=== PATIENT | female | born 1950 | race African-American/Black ===

== ENCOUNTER 2018-02-15 15:53 | Inpatient (IN) ==
[2018-02-15] MEDS ORDERED: INSULIN REGULAR 100 UNIT/ML IV STA ×2 (16:19→18:17)
[2018-02-15] MEDS ORDERED: HYDROmorphone 2 MG/1 ML VIAL IV STA (16:19)
[2018-02-15] MEDS ORDERED: SODIUM CHLORIDE 0.9% 2,000 ML IV STA (16:19)
[2018-02-15] MEDS ORDERED: INSULIN REGULAR 100 UNIT/ML SUBCUT STA (16:19)
[2018-02-15] MEDS ORDERED: ONDANSETRON 4 MG/2 ML VIAL IV STA (16:19)
[2018-02-15 16:43] LABS: ABG Base Excess -3.8 MMOL/L (-2.5-2.5); ABG HCO3 21.2 MMOL/L (20-26); ABG Oxygen Saturation 95.9 % (95-100); ABG PCO2 32.9 MM HG (35-48); ABG PH 7.393 (7.35-7.45); ABG TCO2 16.6 MMOL/L (23-27)
[2018-02-15 17:11] LABS: Basophils % 0.9 % (0.0-0.8); Hematocrit 50.3 VOL% (35.7-47.0); Hemoglobin 16.6 GM/DL (12.0-16.0); Immature Granulocytes % 0.2 %; Immature Granulocytes Absolute 0.01 #; Lymphocytes # 0.9 10*3/uL (1.4-4.0); Lymphocytes % 19.1 % (21.3-54.2); Mean Corpuscular Hemoglobin 28 PG (27-34); Mean Corpuscular Volume 85.5 FL (87-102); Mean Platelet Volume 12.6 FL (9.6-12.0); Monocytes # 0.4 10*3/uL (0.11-0.8); Monocytes % 7.7 % (1.7-12.7); Neutrophils # 3.4 10*3/uL (1.4-7.4); Neutrophils % 72.1 % (38.7-73.9); Platelet Count 214 T/CUMM (130-400); Red Blood Count 5.88 MC/CUMM (3.8-5.5); Red Cell Distribution Width 11.9 % (9.3-17.3); White Blood Count 4.7 T/CUMM (4-12)
[2018-02-15 17:19] LABS: Apearance,Urine Slightly Hazy (Clear); Bacteria,Urine Occasional /HPF (Few); Bilirubin,Urine Negative (Negative); Blood, Urine Small mg/dL (Negative); Glucose,Urine (UA) >=500 mg/dL (Negative); Hyaline Casts,Urine 16 /LPF (0-3); Ketones,Urine 20 mg/dL (Negative); Mucus,Urine Occasional /LPF (Occasional); Nitrite,Urine Negative (Negative); Protein,Urine 100 MG/DL; Squamous Epithelial Cell,Urine Occasional /HPF (0-10); Urine Color Yellow (Yellow); Urine Specific Gravity 1.023 (1.001-1.035); Urine Urobilinogen < 2.0 EU/DL (0.2-1.0); WBC,Urine 5 /HPF (0-6)
[2018-02-15 17:46] LABS: Alanine Aminotransferase 16 U/L (13-56); Alkaline Phosphatase 80 U/L (45-117); Aspartate Amino Transferase 15 U/L (0-37); Blood Urea Nitrogen 38 MG/DL (7-18); Calcium 9.6 MG/DL (8.5-10.1); Osmolality,Calculated 306.4 MOS/KG (273-304); Potassium 3.9 MMOL/L (3.5-5.1); Sodium 133 MMOL/L (136-145); Total Protein 6.9 G/DL (6.4-8.3); Troponin I 0.032 NG/ML (0.00-0.045)
[2018-02-15 17:47] LABS: Glucose 678 MG/DL (74-106)
[2018-02-15 17:53] LABS: Lactic Acid 4.8 MMOL/L (0.4-2.0)
[2018-02-15] MEDS ORDERED: ALBUTEROL 2.5 MG/3 ML NEB RESP TX PRN (18:13)
[2018-02-15] MEDS ORDERED: HYDROmorphone 2 MG/1 ML VIAL IV PRN (18:18)
[2018-02-15] MEDS ORDERED: SODIUM CHLORIDE 0.9% 1,000 ML IV SCH (18:30)
[2018-02-15] MEDS ORDERED: INSULIN REGULAR DRIP 100 ML IV PRN (18:31)
[2018-02-15] MEDS ORDERED: LACTATED RINGERS 1,000 ML IV ONE ×2 (20:12→22:29)
[2018-02-15] MEDS: PIPERACILLIN/TAZOBACTAM 3,375 MG in SODIUM CHLORIDE 0.9% 100 ML IV SCH (20:20)
[2018-02-15] MEDS ORDERED: INFLUENZA VIRUS VACCINE 0.5 ML SYRINGE IM ONE (20:25)
[2018-02-15 20:27] LABS: Calcium 9.5 MG/DL (8.5-10.1); Osmolality,Calculated 303.7 MOS/KG (273-304); Potassium 3.5 MMOL/L (3.5-5.1)
[2018-02-15] MEDS ORDERED: PANTOPRAZOLE 40 MG VIAL IV SCH (21:00)
[2018-02-15] MEDS ORDERED: SUGAMMADEX 200 MG/2 ML VIAL IV ONE (21:26)
[2018-02-15] MEDS ORDERED: PROMETHAZINE INJ 25 MG in SODIUM CHLORIDE 0.9% 50 ML IV PRN (21:32)
[2018-02-15] MEDS ORDERED: MORPHINE 4 MG/1 ML VIAL IV PRN (21:32)
[2018-02-15] MEDS ORDERED: MEPERIDINE 25 MG/1 ML VIAL IV PRN (21:32)
[2018-02-15] MEDS ORDERED: ONDANSETRON 4 MG/2 ML VIAL IV PRN (21:32)
[2018-02-15] MEDS ORDERED: diphenhydrAMINE 50 MG/1 ML VIAL IV PRN (21:32)
[2018-02-15] MEDS: LACTATED RINGERS 1,000 ML IV SCH (22:15)
[2018-02-15] MEDS ORDERED: SEVOFLURANE 1 UNIT/15 MINUTE INH ONE (22:27)
[2018-02-15] MEDS ORDERED: fentaNYL 100 MCG/2 ML VIAL ONE (22:28)
[2018-02-15] MEDS ORDERED: PHENYLEPHRINE 1 MG/10 ML SYRINGE IV ONE (22:28)
[2018-02-15] MEDS ORDERED: ONDANSETRON 4 MG/2 ML VIAL ONE (22:28)
[2018-02-15] MEDS ORDERED: ETOMIDATE 40 MG/20 ML VIAL IV ONE (22:28)
[2018-02-15] MEDS ORDERED: DEXAMETHASONE 10 MG/1 ML VIAL ONE (22:28)
[2018-02-15] MEDS ORDERED: MIDAZOLAM 2 MG/2 ML VIAL ONE (22:28)
[2018-02-15] MEDS ORDERED: ROCURONIUM 100 MG/10 ML VIAL IV ONE (22:29)
[2018-02-15] MEDS ORDERED: SUCCINYLCHOLINE 200 MG/10 ML VIAL ONE (22:29)
[2018-02-15] MEDS ORDERED: PHENYLEPHRINE 0.5% NASAL SPRAY 15 ML BOTTLE BOTH NARES ONE (22:30)
[2018-02-15] MEDS ORDERED: LIDOCAINE 2% TOP JELLY 5 ML TUBE TOP ONE (22:30)
[2018-02-15] MEDS ORDERED: INSULIN REGULAR 100 UNIT/ML IV ONE ×2 (22:35→23:27)
[2018-02-15] MEDS ORDERED: MORPHINE 4 MG/1 ML VIAL IM PRN (23:27)
[2018-02-16 01:03] LABS: Hematocrit 45.7 VOL% (35.7-47.0); Hemoglobin 14.8 GM/DL (12.0-16.0)
[2018-02-16 01:26] LABS: Osmolality,Calculated 299.3 MOS/KG (273-304); Potassium 3.2 MMOL/L (3.5-5.1)
[2018-02-16 01:28] LABS: Lactic Acid 2.9 MMOL/L (0.4-2.0)
[2018-02-16 01:36] LABS: Albumin 2.3 G/DL (3.4-5.0); Bilirubin,Total 1.1 MG/DL (0.2-1.0); Calcium 8.9 MG/DL (8.5-10.1); Osmolality,Calculated 298.3 MOS/KG (273-304); Potassium 3.1 MMOL/L (3.5-5.1); Thyroid Stimulating Hormone 4.21 uIU/ml (0.358-3.74); Total Protein 5.7 G/DL (6.4-8.3)
[2018-02-16] MEDS: LACTATED RINGERS 1,000 ML IV SCH ×4 (03:42→22:30)
[2018-02-16] MEDS ORDERED: DEXTROSE 50% 25 GM/50 ML VIAL IV ONE (04:35)
[2018-02-16] MEDS: DEXTROSE 50% 25 GM/50 ML VIAL IV PRN ×2 (04:45→08:15)
[2018-02-16 05:35] LABS: Basophils % 0.1 % (0.0-0.8); Hematocrit 46.1 VOL% (35.7-47.0); Hemoglobin 14.9 GM/DL (12.0-16.0); Immature Granulocytes % 0.3 %; Immature Granulocytes Absolute 0.02 #; Lymphocytes # 0.9 10*3/uL (1.4-4.0); Lymphocytes % 13.5 % (21.3-54.2); Mean Corpuscular HGB Conc 32.3 GM/DL (32-36); Mean Corpuscular Hemoglobin 28 PG (27-34); Mean Corpuscular Volume 85.5 FL (87-102); Mean Platelet Volume 12.6 FL (9.6-12.0); Monocytes # 0.6 10*3/uL (0.11-0.8); Monocytes % 7.9 % (1.7-12.7); Neutrophils # 5.4 10*3/uL (1.4-7.4); Neutrophils % 78.2 % (38.7-73.9); Platelet Count 175 T/CUMM (130-400); Red Blood Count 5.39 MC/CUMM (3.8-5.5)
[2018-02-16 05:56] LABS: Microcytosis 1+
[2018-02-16 05:57] LABS: Hypochromasia 1+
[2018-02-16 05:58] LABS: Platelet Estimate Adequate
[2018-02-16] MEDS: PANTOPRAZOLE 40 MG VIAL IV SCH ×2 (08:16→20:37)
[2018-02-16] MEDS: PIPERACILLIN/TAZOBACTAM 3,375 MG in SODIUM CHLORIDE 0.9% 100 ML IV SCH ×2 (08:16→20:36)
[2018-02-16] MEDS ORDERED: PANTOPRAZOLE 40 MG TABLET PO SCH (09:00)
[2018-02-16] MEDS: MORPHINE 4 MG/1 ML VIAL IV PRN ×2 (11:30→16:33)
[2018-02-16] MEDS ORDERED: SODIUM CHLORIDE 0.9% 1,000 ML IV ONE (12:45)
[2018-02-16] MEDS ORDERED: POTASSIUM CHLORIDE RIDER 20 MEQ in PREMIX 1 EACH IV SCH (13:30)
[2018-02-16] MEDS ORDERED: FAT EMULSION 20% 250 ML IV SCH (14:00)
[2018-02-16] MEDS: POTASSIUM CHLORIDE RIDER 10 MEQ in PREMIX 1 EACH IV SCH ×4 (14:18→17:25)
[2018-02-16] MEDS ORDERED: GLUCAGON 1 MG VIAL IM PRN ×2 (14:25→15:20)
[2018-02-16] MEDS ORDERED: DEXTROSE 50% 25 GM/50 ML VIAL IV PRN (15:20)
[2018-02-16] MEDS ORDERED: METOPROLOL TARTRATE 5 MG/5 ML VIAL IV ONE (16:30)
[2018-02-16] MEDS: ONDANSETRON 4 MG/2 ML VIAL IV PRN (16:30)
[2018-02-16] MEDS ORDERED: LACTATED RINGERS 1,000 ML IV ONE ×2 (16:31→20:53)
[2018-02-16] MEDS ORDERED: TRACE ELEMENTS (5) 1 ML, MULTIVITAMIN INJ 10 ML in AMINO ACIDS/DEXT/LYTES 5-15% 2,000 ML IV SCH (17:00)
[2018-02-16] MEDS ORDERED: DEXTROSE 10% 1,000 ML IV PRN (17:00)
[2018-02-16] MEDS: INSULIN REGULAR 100 UNIT/ML SUBCUT SCH (17:05)
[2018-02-17] MEDS: INSULIN REGULAR 100 UNIT/ML SUBCUT SCH ×5 (00:51→23:35)
[2018-02-17] MEDS: MORPHINE 4 MG/1 ML VIAL IV PRN ×3 (02:31→18:30)
[2018-02-17 05:01] LABS: Albumin 1.9 G/DL (3.4-5.0); Bilirubin,Total 0.7 MG/DL (0.2-1.0); Calcium 9.3 MG/DL (8.5-10.1); Osmolality,Calculated 291.8 MOS/KG (273-304); Potassium 4.3 MMOL/L (3.5-5.1); Total Protein 5.7 G/DL (6.4-8.3)
[2018-02-17 05:03] LABS: Prealbumin 7.8 MG/DL (20-40)
[2018-02-17] MEDS: LACTATED RINGERS 1,000 ML IV SCH ×4 (05:15→20:12)
[2018-02-17 06:06] LABS: Basophils # 0.1 10*3/uL (0.0-0.2); Basophils % 0.6 % (0.0-0.8); Hematocrit 36.2 VOL% (35.7-47.0); Immature Granulocytes % 0.1 %; Immature Granulocytes Absolute 0.01 #; Lymphocytes % 11.7 % (21.3-54.2); Mean Corpuscular HGB Conc 32.3 GM/DL (32-36); Mean Corpuscular Hemoglobin 28 PG (27-34); Mean Corpuscular Volume 86.6 FL (87-102); Mean Platelet Volume 12.6 FL (9.6-12.0); Monocytes # 0.5 10*3/uL (0.11-0.8); Monocytes % 5.5 % (1.7-12.7); Neutrophils # 6.7 10*3/uL (1.4-7.4); Neutrophils % 82.1 % (38.7-73.9); Platelet Count 141 T/CUMM (130-400); Red Cell Distribution Width 12.1 % (9.3-17.3); White Blood Count 8.2 T/CUMM (4-12)
[2018-02-17 06:15] LABS: Hemoglobin 11.7 GM/DL (12.0-16.0); Red Blood Count 4.18 MC/CUMM (3.8-5.5)
[2018-02-17 06:27] LABS: Band Neutrophils 4 % (0-10); Burr Cells 1+; Lymphocytes 13 % (20-55); Platelet Estimate Normal; Segmented Neutrophils 74 % (50-85); Total Cells Counted 100
[2018-02-17] MEDS: PIPERACILLIN/TAZOBACTAM 3,375 MG in SODIUM CHLORIDE 0.9% 100 ML IV SCH ×3 (08:20→23:28)
[2018-02-17] MEDS: PANTOPRAZOLE 40 MG VIAL IV SCH ×2 (08:22→20:11)
[2018-02-17] MEDS: ONDANSETRON 4 MG/2 ML VIAL IV PRN (08:24)
[2018-02-17] MEDS: hydrALAZINE 20 MG/1 ML VIAL IV PRN ×2 (11:17→18:14)
[2018-02-17] MEDS: METOPROLOL TARTRATE 5 MG/5 ML VIAL IV SCH ×3 (13:37→23:27)
[2018-02-17] MEDS ORDERED: METOPROLOL TARTRATE 5 MG/5 ML VIAL IV ONE (16:18)
[2018-02-17] MEDS ORDERED: TRACE ELEMENTS (5) 1 ML, MULTIVITAMIN INJ 10 ML in AMINO ACIDS/DEXT/LYTES 5-15% 2,000 ML IV SCH (17:00)
[2018-02-18] MEDS: LACTATED RINGERS 1,000 ML IV SCH ×4 (03:10→23:02)
[2018-02-18] MEDS: hydrALAZINE 20 MG/1 ML VIAL IV PRN ×2 (03:11→12:02)
[2018-02-18 03:40] LABS: Basophils % 0.2 % (0.0-0.8); Eosinophils % 0.1 % (0.00-10.9); Hematocrit 36.5 VOL% (35.7-47.0); Hemoglobin 11.8 GM/DL (12.0-16.0); Immature Granulocytes % 0.3 %; Immature Granulocytes Absolute 0.03 #; Lymphocytes # 1.3 10*3/uL (1.4-4.0); Lymphocytes % 13.7 % (21.3-54.2); Mean Corpuscular HGB Conc 32.3 GM/DL (32-36); Mean Corpuscular Hemoglobin 28 PG (27-34); Mean Corpuscular Volume 87.1 FL (87-102); Mean Platelet Volume 12.1 FL (9.6-12.0); Monocytes # 0.6 10*3/uL (0.11-0.8); Monocytes % 6.1 % (1.7-12.7); Neutrophils # 7.6 10*3/uL (1.4-7.4); Neutrophils % 79.6 % (38.7-73.9); Platelet Count 161 T/CUMM (130-400); Red Blood Count 4.19 MC/CUMM (3.8-5.5); Red Cell Distribution Width 12.2 % (9.3-17.3); White Blood Count 9.5 T/CUMM (4-12)
[2018-02-18 04:07] LABS: Potassium 4.4 MMOL/L (3.5-5.1)
[2018-02-18 04:19] LABS: Platelet Estimate Decreased
[2018-02-18] MEDS: METOPROLOL TARTRATE 5 MG/5 ML VIAL IV SCH (05:29)
[2018-02-18] MEDS: MORPHINE 4 MG/1 ML VIAL IV PRN ×2 (05:34→16:11)
[2018-02-18] MEDS: INSULIN REGULAR 100 UNIT/ML SUBCUT SCH ×4 (05:35→23:59)
[2018-02-18] MEDS: ONDANSETRON 4 MG/2 ML VIAL IV PRN (05:36)
[2018-02-18] MEDS: METOPROLOL TARTRATE 25 MG TABLET PO SCH ×2 (09:54→20:42)
[2018-02-18] MEDS: PANTOPRAZOLE 40 MG VIAL IV SCH ×2 (09:55→20:44)
[2018-02-18] MEDS: PIPERACILLIN/TAZOBACTAM 3,375 MG in SODIUM CHLORIDE 0.9% 100 ML IV SCH ×3 (10:00→23:59)
[2018-02-18] MEDS ORDERED: METOPROLOL TARTRATE 25 MG TABLET PO SCH (10:00)
[2018-02-18] MEDS: ENOXAPARIN 40 MG/0.4 ML SYRINGE SUBCUT SCH (12:02)
[2018-02-19 04:31] LABS: Basophils % 0.4 % (0.0-0.8); Eosinophils # 0.1 10*3/uL (0.0-0.87); Eosinophils % 0.7 % (0.00-10.9); Hematocrit 36.6 VOL% (35.7-47.0); Hemoglobin 11.7 GM/DL (12.0-16.0); Immature Granulocytes % 1.8 %; Immature Granulocytes Absolute 0.13 #; Lymphocytes # 1.2 10*3/uL (1.4-4.0); Lymphocytes % 16.3 % (21.3-54.2); Mean Corpuscular Hemoglobin 28 PG (27-34); Mean Corpuscular Volume 87.6 FL (87-102); Mean Platelet Volume 12.1 FL (9.6-12.0); Monocytes # 0.8 10*3/uL (0.11-0.8); Monocytes % 11.9 % (1.7-12.7); Neutrophils # 4.9 10*3/uL (1.4-7.4); Neutrophils % 68.9 % (38.7-73.9); Platelet Count 156 T/CUMM (130-400); Red Blood Count 4.18 MC/CUMM (3.8-5.5); Red Cell Distribution Width 12.3 % (9.3-17.3); White Blood Count 7.1 T/CUMM (4-12)
[2018-02-19 04:47] LABS: Calcium 10.7 MG/DL (8.5-10.1); Osmolality,Calculated 284.8 MOS/KG (273-304); Potassium 3.6 MMOL/L (3.5-5.1)
[2018-02-19 04:59] LABS: Eosinophils 1 % (0-10); Lymphocytes 22 % (20-55); Segmented Neutrophils 68 % (50-85)
[2018-02-19 05:00] LABS: Platelet Estimate Normal
[2018-02-19 05:01] LABS: Ovalocytes 1+; Total Cells Counted 100
[2018-02-19] MEDS: LACTATED RINGERS 1,000 ML IV SCH (06:25)
[2018-02-19] MEDS: INSULIN REGULAR 100 UNIT/ML SUBCUT SCH ×3 (06:25→18:11)
[2018-02-19] MEDS: PROMETHAZINE 25 MG/1 ML VIAL IM PRN (07:40)
[2018-02-19] MEDS: PIPERACILLIN/TAZOBACTAM 3,375 MG in SODIUM CHLORIDE 0.9% 100 ML IV SCH (08:40)
[2018-02-19] MEDS: METOPROLOL TARTRATE 25 MG TABLET PO SCH (09:33)
[2018-02-19] MEDS: PANTOPRAZOLE 40 MG TABLET PO SCH ×2 (09:33→20:47)
[2018-02-19] MEDS: CLARITHROMYCIN 500 MG TABLET PO SCH ×2 (09:33→20:47)
[2018-02-19] MEDS: AMOXICILLIN 875 MG TABLET PO SCH ×2 (09:33→20:47)
[2018-02-19] MEDS ORDERED: METOPROLOL TARTRATE 50 MG TABLET PO SCH (09:59)
[2018-02-19] MEDS ORDERED: METOPROLOL TARTRATE 25 MG TABLET PO ONE (10:00)
[2018-02-19] MEDS: LISINOPRIL 10 MG TABLET PO SCH ×2 (10:31→20:47)
[2018-02-19] MEDS: ENOXAPARIN 40 MG/0.4 ML SYRINGE SUBCUT SCH (10:32)
[2018-02-19] MEDS ORDERED: LABETALOL 100 MG/20 ML VIAL IV PRN (14:45)
[2018-02-19] MEDS: cloNIDine 0.1 MG TABLET PO SCH (20:47)
[2018-02-19] MEDS: CARVEDILOL 25 MG TABLET PO SCH (20:47)
[2018-02-20] MEDS: INSULIN REGULAR 100 UNIT/ML SUBCUT SCH ×3 (00:40→11:50)
[2018-02-20 04:39] LABS: Basophils % 0.5 % (0.0-0.8); Eosinophils # 0.1 10*3/uL (0.0-0.87); Eosinophils % 0.9 % (0.00-10.9); Hematocrit 34.1 VOL% (35.7-47.0); Immature Granulocytes % 5.9 %; Immature Granulocytes Absolute 0.39 #; Lymphocytes # 1.3 10*3/uL (1.4-4.0); Lymphocytes % 19.3 % (21.3-54.2); Mean Corpuscular HGB Conc 32.3 GM/DL (32-36); Mean Corpuscular Hemoglobin 28 PG (27-34); Mean Corpuscular Volume 86.1 FL (87-102); Monocytes # 0.9 10*3/uL (0.11-0.8); Neutrophils # 3.9 10*3/uL (1.4-7.4); Neutrophils % 59.4 % (38.7-73.9); Platelet Count 195 T/CUMM (130-400); Red Blood Count 3.96 MC/CUMM (3.8-5.5); Red Cell Distribution Width 12.3 % (9.3-17.3); White Blood Count 6.6 T/CUMM (4-12)
[2018-02-20 05:17] LABS: Albumin 1.7 G/DL (3.4-5.0); Bilirubin,Total 0.7 MG/DL (0.2-1.0); Calcium 9.6 MG/DL (8.5-10.1); Lymphocytes 24 % (20-55); Metamyelocytes 1 %; Myelocytes 1 %; Nucleated Red Blood Cells 1 (0-5); Osmolality,Calculated 286.1 MOS/KG (273-304); Potassium 3.4 MMOL/L (3.5-5.1); Segmented Neutrophils 64 % (50-85); Total Cells Counted 100; Total Protein 5.3 G/DL (6.4-8.3)
[2018-02-20 05:18] LABS: Platelet Estimate Adequate
[2018-02-20 05:26] LABS: Folate 10.6 NG/ML (5.4-24.0); Vitamin B12 999 PG/ML (211-911)
[2018-02-20] MEDS: PROMETHAZINE 25 MG/1 ML VIAL IM PRN (06:00)
[2018-02-20] MEDS ORDERED: ERGOCALCIFEROL 50,000 UNIT CAPSULE PO SCH (07:30)
[2018-02-20] MEDS: POTASSIUM CHLORIDE 20 MEQ TABLET PO SCH ×3 (07:35→15:54)
[2018-02-20] MEDS: CLARITHROMYCIN 500 MG TABLET PO SCH (08:19)
[2018-02-20] MEDS: PANTOPRAZOLE 40 MG TABLET PO SCH (08:20)
[2018-02-20] MEDS: cloNIDine 0.1 MG TABLET PO SCH (08:20)
[2018-02-20] MEDS: CARVEDILOL 25 MG TABLET PO SCH (08:20)
[2018-02-20] MEDS: AMOXICILLIN 875 MG TABLET PO SCH (08:20)
[2018-02-20] MEDS: LISINOPRIL 10 MG TABLET PO SCH (08:20)
[2018-02-20] MEDS ORDERED: MAGNESIUM CHLORIDE 64 MG TABLET PO SCH (09:00)
[2018-02-20] MEDS ORDERED: CHOLECALCIFEROL 5,000 UNIT TABLET PO SCH (09:00)
[2018-02-20] MEDS ORDERED: PNEUMOCOCCAL VACCINE (13 VALENT) 0.5 ML SYRINGE IM ONE (11:24)
[2018-02-20] MEDS: ENOXAPARIN 40 MG/0.4 ML SYRINGE SUBCUT SCH (11:52)
[2018-02-20 12:27] VITALS: BP 147/80
[2018-02-20] MEDS ORDERED: FOLIC ACID 1 MG TABLET PO SCH (21:00)
== END 2018-02-20 15:45 | disposition home or self-care (01) | DRG 329 ==
LOC: N.ED 15:53 → N.EDINP 18:13 → SUATTDRO 18:14 → N.CC 19:30 → N.3E 02-18 14:25
PROVIDERS: ADMIT Family Medicine; ATTEND Hospitalist

== ENCOUNTER 2018-12-29 12:33 | Inpatient (IN) ==
[2018-12-29] MEDS ORDERED: PANTOPRAZOLE 40 MG VIAL IV STA (16:59)
[2018-12-29] MEDS ORDERED: ONDANSETRON 4 MG/2 ML VIAL IV STA (16:59)
[2018-12-29] MEDS ORDERED: SODIUM CHLORIDE 0.9% 500 ML IV STA (16:59)
[2018-12-29 18:19] LABS: Basophils % 0.3 % (0.0-0.8); Eosinophils # 0.1 10*3/uL (0.0-0.87); Eosinophils % 0.4 % (0.00-10.9); Hematocrit 38.4 VOL% (35.7-47.0); Hemoglobin 12.6 GM/DL (12.0-16.0); Immature Granulocytes % 0.8 %; Lymphocytes # 1.7 10*3/uL (1.4-4.0); Lymphocytes % 13.6 % (21.3-54.2); Mean Corpuscular HGB Conc 32.8 GM/DL (32-36); Mean Corpuscular Volume 85.5 FL (87-102); Mean Platelet Volume 11.9 FL (9.6-12.0); Monocytes % 6.5 % (1.7-12.7); Neutrophils % 78.4 % (38.7-73.9); Platelet Count 306 T/CUMM (130-400); Red Blood Count 4.49 MC/CUMM (3.8-5.5); Red Cell Distribution Width 11.6 % (9.3-17.3); White Blood Count 12.3 T/CUMM (4-12)
[2018-12-29 18:23] LABS: Apearance,Urine CLEAR (Clear); Bilirubin,Urine Negative (Negative); Blood, Urine Negative (Negative); Glucose,Urine (UA) >=500 mg/dL (Negative); Ketones,Urine 80 mg/dL (Negative); Mucus,Urine Occasional /LPF (Occasional); Nitrite,Urine Negative (Negative); Protein,Urine Negative; RBC,Urine <1 /HPF (0-4); Squamous Epithelial Cell,Urine Occasional /HPF (0-10); Urine Color Yellow (Yellow); Urine Specific Gravity 1.038 (1.001-1.035); Urine Urobilinogen < 2.0 EU/DL (0.2-1.0); WBC,Urine 3 /HPF (0-6)
[2018-12-29 18:44] LABS: Albumin 2.8 G/DL (3.4-5.0); Bilirubin,Total 0.5 MG/DL (0.2-1.0); Calcium 10.6 MG/DL (8.5-10.1); Osmolality,Calculated 274.5 MOS/KG (273-304); Total Protein 6.9 G/DL (6.4-8.3)
[2018-12-29 18:46] LABS: Troponin I < 0.015 NG/ML (0.00-0.045)
[2018-12-29] MEDS: PIPERACILLIN/TAZOBACTAM 3,375 MG in SODIUM CHLORIDE 0.9% 100 ML IV SCH (20:11)
[2018-12-29] MEDS ORDERED: DEXTROSE 50% 25 GM/50 ML VIAL IV PRN (21:11)
[2018-12-29] MEDS ORDERED: hydrALAZINE 20 MG/1 ML VIAL IV PRN (21:11)
[2018-12-29] MEDS ORDERED: ONDANSETRON 4 MG/2 ML VIAL IV PRN (21:11)
[2018-12-29] MEDS ORDERED: ACETAMINOPHEN 325 MG TABLET PO PRN (21:11)
[2018-12-29] MEDS ORDERED: GLUCAGON 1 MG VIAL IM PRN (21:11)
[2018-12-29] MEDS: SODIUM CHLORIDE 0.9% 1,000 ML IV SCH (22:55)
[2018-12-30] MEDS: PANTOPRAZOLE INJ 200 MG in SODIUM CHLORIDE 0.9% 250 ML IV SCH ×2 (00:40→22:18)
[2018-12-30] MEDS: INSULIN REGULAR 100 UNIT/ML SUBCUT SCH ×5 (00:40→23:38)
[2018-12-30] MEDS: HYDROmorphone 2 MG/1 ML VIAL IV PRN ×2 (00:45→20:47)
[2018-12-30] MEDS: PIPERACILLIN/TAZOBACTAM 3,375 MG in SODIUM CHLORIDE 0.9% 100 ML IV SCH (03:16)
[2018-12-30 05:30] LABS: Basophils % 0.3 % (0.0-0.8); Eosinophils # 0.1 10*3/uL (0.0-0.87); Eosinophils % 1.3 % (0.00-10.9); Hematocrit 33.7 VOL% (35.7-47.0); Hemoglobin 11.1 GM/DL (12.0-16.0); Immature Granulocytes % 0.6 %; Immature Granulocytes Absolute 0.04 #; Lymphocytes # 1.5 10*3/uL (1.4-4.0); Lymphocytes % 21.6 % (21.3-54.2); Mean Corpuscular HGB Conc 32.9 GM/DL (32-36); Mean Corpuscular Volume 84.3 FL (87-102); Neutrophils % 68.2 % (38.7-73.9); Platelet Count 272 T/CUMM (130-400); Red Cell Distribution Width 11.6 % (9.3-17.3)
[2018-12-30 05:59] LABS: Calcium 10.3 MG/DL (8.5-10.1); Osmolality,Calculated 276.7 MOS/KG (273-304)
[2018-12-30] MEDS: SODIUM CHLORIDE 0.9% 1,000 ML IV SCH (10:59)
[2018-12-30] MEDS: PANTOPRAZOLE 40 MG VIAL IV SCH (20:47)
[2018-12-31] MEDS: INSULIN REGULAR 100 UNIT/ML SUBCUT SCH ×4 (05:42→23:35)
[2018-12-31 05:49] LABS: Basophils % 0.7 % (0.0-0.8); Eosinophils # 0.1 10*3/uL (0.0-0.87); Eosinophils % 1.9 % (0.00-10.9); Hematocrit 36.4 VOL% (35.7-47.0); Hemoglobin 11.6 GM/DL (12.0-16.0); Immature Granulocytes % 0.9 %; Immature Granulocytes Absolute 0.05 #; Lymphocytes # 1.9 10*3/uL (1.4-4.0); Lymphocytes % 33.7 % (21.3-54.2); Mean Corpuscular HGB Conc 31.9 GM/DL (32-36); Mean Corpuscular Volume 85.8 FL (87-102); Mean Platelet Volume 12.2 FL (9.6-12.0); Monocytes % 9.5 % (1.7-12.7); Neutrophils % 53.3 % (38.7-73.9); Platelet Count 313 T/CUMM (130-400); Red Blood Count 4.24 MC/CUMM (3.8-5.5); Red Cell Distribution Width 11.8 % (9.3-17.3); White Blood Count 5.7 T/CUMM (4-12)
[2018-12-31 06:06] LABS: Calcium 10.6 MG/DL (8.5-10.1); Osmolality,Calculated 282.3 MOS/KG (273-304)
[2018-12-31] MEDS: SODIUM CHLORIDE 0.9% 1,000 ML IV SCH ×3 (06:44→23:36)
[2018-12-31] MEDS: PANTOPRAZOLE 40 MG VIAL IV SCH ×2 (09:40→20:32)
[2018-12-31] MEDS ORDERED: POTASSIUM CHLORIDE 20 MEQ TABLET PO ONE (13:41)
[2018-12-31] MEDS: HYDROmorphone 2 MG/1 ML VIAL IV PRN (20:32)
[2019-01-01] MEDS: SODIUM CHLORIDE 0.9% 1,000 ML IV SCH (05:53)
[2019-01-01] MEDS: INSULIN REGULAR 100 UNIT/ML SUBCUT SCH ×3 (06:16→19:18)
[2019-01-01 10:20] LABS: Basophils % 0.4 % (0.0-0.8); Eosinophils # 0.1 10*3/uL (0.0-0.87); Eosinophils % 1.5 % (0.00-10.9); Hematocrit 36.1 VOL% (35.7-47.0); Hemoglobin 11.8 GM/DL (12.0-16.0); Immature Granulocytes % 0.6 %; Immature Granulocytes Absolute 0.03 #; Lymphocytes # 1.9 10*3/uL (1.4-4.0); Lymphocytes % 40.6 % (21.3-54.2); Mean Corpuscular HGB Conc 32.7 GM/DL (32-36); Mean Corpuscular Volume 85.3 FL (87-102); Mean Platelet Volume 11.9 FL (9.6-12.0); Monocytes % 11.8 % (1.7-12.7); Neutrophils % 45.1 % (38.7-73.9); Platelet Count 280 T/CUMM (130-400); Red Blood Count 4.23 MC/CUMM (3.8-5.5); White Blood Count 4.7 T/CUMM (4-12)
[2019-01-01] MEDS: PANTOPRAZOLE 40 MG VIAL IV SCH ×2 (11:56→21:31)
[2019-01-01] MEDS ORDERED: PROPOFOL 200 MG/20 ML VIAL IV ONE (12:02)
[2019-01-01] MEDS: SUCRALFATE 1 GM/10 ML UDCUP PO SCH (17:31)
[2019-01-01] MEDS ORDERED: FOLIC ACID 1 MG TABLET PO SCH (21:00)
[2019-01-01] MEDS: LISINOPRIL 10 MG TABLET PO SCH (21:30)
[2019-01-01] MEDS: CARVEDILOL 25 MG TABLET PO SCH (21:31)
[2019-01-01] MEDS: cloNIDine 0.1 MG TABLET PO SCH (21:31)
[2019-01-02 05:51] LABS: Basophils % 0.5 % (0.0-0.8); Eosinophils # 0.1 10*3/uL (0.0-0.87); Eosinophils % 1.4 % (0.00-10.9); Hematocrit 32.4 VOL% (35.7-47.0); Hemoglobin 10.5 GM/DL (12.0-16.0); Immature Granulocytes % 0.5 %; Immature Granulocytes Absolute 0.02 #; Lymphocytes # 1.6 10*3/uL (1.4-4.0); Lymphocytes % 38.5 % (21.3-54.2); Mean Corpuscular HGB Conc 32.4 GM/DL (32-36); Mean Platelet Volume 12.3 FL (9.6-12.0); Monocytes % 10.6 % (1.7-12.7); Neutrophils % 48.5 % (38.7-73.9); Platelet Count 268 T/CUMM (130-400); Red Blood Count 3.81 MC/CUMM (3.8-5.5); White Blood Count 4.2 T/CUMM (4-12)
[2019-01-02] MEDS: INSULIN REGULAR 100 UNIT/ML SUBCUT SCH ×3 (05:53→14:14)
[2019-01-02] MEDS ORDERED: GLIMEPIRIDE 4 MG TABLET PO SCH (09:00)
[2019-01-02] MEDS ORDERED: SIMVASTATIN 10 MG TABLET PO SCH (09:00)
[2019-01-02] MEDS: PANTOPRAZOLE 40 MG VIAL IV SCH (10:24)
[2019-01-02] MEDS: cloNIDine 0.1 MG TABLET PO SCH (10:25)
[2019-01-02] MEDS: SUCRALFATE 1 GM/10 ML UDCUP PO SCH (10:25)
[2019-01-02] MEDS: CARVEDILOL 25 MG TABLET PO SCH (10:25)
[2019-01-02] MEDS: LISINOPRIL 10 MG TABLET PO SCH (10:25)
[2019-01-02 16:15] VITALS: BP 143/79
== END 2019-01-02 16:59 | disposition home or self-care (01) | DRG 378 ==
LOC: N.ED 12:33 → N.EDINP 19:47 → SUATTDRO 19:47 → N.5E 20:51
PROVIDERS: ADMIT Internal Medicine; ATTEND Internal Medicine